=== PATIENT | female | born 1980 | race Caucasian/White ===

== ENCOUNTER 2019-02-08 18:52 | Emergency (ER) | payer OTHER ==
[~2019-02-08] VITALS: Ht 162.6 cm; Wt 77.1 kg
[~2019-02-08 18:52] MED LIST: ALBU90OI6 INH; AMOX500 PO; ANTOXYBENA RIGHTEAR; BENZ100A PO; CEPH500 PO; CODGUAEL PO; Cleocin HCl300 MG PO; Crutch1 EACH MISC; IBUP600 PO; K-Dur10 MEQ PO; LAMO100 PO; Lasix20 MG PO; Naprosyn500 MG PO; Norco 5-325 Ta1 EACH PO; ONDA4 PO; Percocet 5-3251 EACH PO; SILSUL1TC TOP; Ultram50 MG PO
[2019-02-08] MEDS ORDERED: ERYT1OIN RIGHTEYE (19:23)
== END 2019-02-08 19:30 | disposition home or self-care (01) ==
LOC: ER 18:52
DX: H10.9 Unspecified conjunctivitis (principal); F17.210 Nicotine dependence, cigarettes, uncomplicated
CPT/HCPCS: 99283

== ENCOUNTER 2019-02-10 18:30 | Emergency (ER) | payer OTHER ==
[~2019-02-10] VITALS: Ht 162.6 cm; Wt 73.5 kg
[~2019-02-10 18:30] MED LIST changes: +ERYT1OIN RIGHTEYE
[2019-02-10] MEDS ORDERED: Artificial Tear15 M4 RIGHTEYE (21:08)
== END 2019-02-10 21:40 | disposition home or self-care (01) ==
LOC: ER 18:30
DX: B30.9 Viral conjunctivitis, unspecified (principal); M79.89 Other specified soft tissue disorders; F17.210 Nicotine dependence, cigarettes, uncomplicated
CPT/HCPCS: 93971; 99283-25

== ENCOUNTER 2019-03-18 16:04 | Emergency (ER) | payer OTHER ==
[~2019-03-18] VITALS: Ht 175.3 cm; Wt 79.4 kg
[~2019-03-18 16:04] MED LIST changes: +Artificial Tear15 M4 RIGHTEYE
[2019-03-18] MEDS ORDERED: LAMO100 (17:09)
== END 2019-03-18 17:33 | disposition home or self-care (01) ==
LOC: ER 16:04
DX: F31.9 Bipolar disorder, unspecified (principal); R45.1 Restlessness and agitation; Z79.899 Other long term (current) drug therapy; F17.210 Nicotine dependence, cigarettes, uncomplicated
CPT/HCPCS: 99283

== ENCOUNTER 2019-03-24 12:15 | Emergency (ER) | payer OTHER ==
[~2019-03-24] VITALS: Ht 162.6 cm; Wt 82.1 kg
[~2019-03-24 12:15] MED LIST changes: +LAMO100
[2019-03-24] MEDS ORDERED: Bactrim Ds Tab1 EACH PO (12:44)
== END 2019-03-24 12:49 | disposition home or self-care (01) ==
LOC: ER 12:15
DX: L73.1 Pseudofolliculitis barbae (principal); F32.9 Major depressive disorder, single episode, unspecified; F17.210 Nicotine dependence, cigarettes, uncomplicated; Z79.899 Other long term (current) drug therapy; Z86.14 Personal history of Methicillin resistant Staphylococcus aureus infection
CPT/HCPCS: 99282

== ENCOUNTER 2020-07-14 10:31 | Emergency (ER) | payer OTHER ==
[~2020-07-14] VITALS: Ht 162.6 cm; Wt 81.7 kg
[~2020-07-14 10:31] MED LIST changes: +Bactrim Ds Tab1 EACH PO
[2020-07-14] MEDS ORDERED: KEFLEX500 MG PO (11:19)
[2020-07-14] MEDS ORDERED: Bactrim Ds Tab1 EACH PO (11:19)
== END 2020-07-14 11:45 | disposition home or self-care (01) ==
LOC: ER 10:31
DX: L02.412 Cutaneous abscess of left axilla (principal); N76.4 Abscess of vulva
CPT/HCPCS: 10060; 56405; 99283-25; A9270-GY

== ENCOUNTER → 2020-09-25 | Outpatient (CLI) | payer OTHER ==
[~2020-09-25] MED LIST changes: +IBUP800 PO; +KEFLEX500 MG PO; +SULTRIDS PO
[2020-09-26 03:19] LABS: Candida species (DNA Probe) Negative (NEGATIVE); G. vaginalis (DNA Probe) Negative (NEGATIVE); T. vaginalis (DNA Probe) Negative (NEGATIVE)
== END | disposition home or self-care (01) ==
LOC: LAB SHORT 10:25 → LAB 10:25
PROVIDERS: Physician Assistant
DX: N76.0 Acute vaginitis (principal); Z20.9 Contact with and (suspected) exposure to unspecified communicable disease; R82.79 Other abnormal findings on microbiological examination of urine
CPT/HCPCS: 87070; 87077; 87086; 87186; 87205; 87480; 87510; 87660

== ENCOUNTER 2020-10-01 11:29 | Emergency (ER) | payer OTHER ==
[~2020-10-01] VITALS: Ht 162.6 cm; Wt 81.7 kg
[~2020-10-01 11:29] MED LIST changes: -IBUP800 PO; -SULTRIDS PO
[2020-12-13] MEDS ORDERED: IBUP800 PO (12:01)
[2020-12-13] MEDS ORDERED: Cleocin HCl300 MG PO (12:01)
== END 2020-10-01 13:27 | disposition home or self-care (01) ==
LOC: ER 11:29
DX: F41.9 Anxiety disorder, unspecified (principal); F17.200 Nicotine dependence, unspecified, uncomplicated
CPT/HCPCS: 99283

== ENCOUNTER 2021-02-28 19:25 | Emergency (ER) | payer OTHER ==
[~2021-02-28] VITALS: Ht 162.6 cm; Wt 77.1 kg
[~2021-02-28 19:25] MED LIST changes: +IBUP800 PO
[2021-02-28] MEDS ORDERED: CEPH500 PO (20:02)
[2021-02-28] MEDS ORDERED: SULTRIDS PO (20:02)
== END 2021-02-28 20:14 | disposition home or self-care (01) ==
LOC: ER 19:25
DX: L03.114 Cellulitis of left upper limb (principal); Z87.891 Personal history of nicotine dependence
CPT/HCPCS: 99283; A9270

== ENCOUNTER 2021-04-11 23:08 | Emergency (ER) | payer OTHER ==
[~2021-04-11] VITALS: Ht 165.1 cm; Wt 79.4 kg
[~2021-04-11 23:08] MED LIST changes: +SULTRIDS PO
[2021-04-12 01:53] LABS: Alanine Aminotransfer (ALT/SGP 23 U/L (12-78); Albumin, Blood 3.6 g/dL (3.4-5.0); Albumin/Globulin Ratio 1.1 (0.8-1.8); Alk Phos 74 U/L (50-136); Anion Gap 5 mmol/L (6-16); Aspartate Aminotrans (AST/SGOT 13 U/L (12-37); Bilirubin, Total 0.1 mg/dL (0.1-1.0); Blood Urea Nitrogen 14 mg/dL (8-24); Bun/Creatinine Ratio 27.1 (12.0-20.0); CO2, Blood 28 mmol/L (21-32); Calcium, Blood 8.5 mg/dL (8.5-10.1); Chloride, Blood 107 mmol/L (98-108); Creatinine, Blood 0.52 mg/dL (0.40-1.00); Globulin, Blood 3.3 g/dL (2.2-4.0); Glomerular Filtration Rate >60 (60-); Glucose, Blood 118 mg/dL (70-99); Potassium, Blood 4.2 mmol/L (3.5-5.5); Sodium, Blood 140 mmol/L (136-145); Total Protein, Blood 6.9 g/dL (6.4-8.2); Troponin I <0.015 ng/mL (0.000-0.040)
[2021-04-12 02:11] LABS: BASOPHILS ABSOLUTE AUTO 0.01 K/mm3 (0.00-0.23); BASOPHILS PERCENT AUTO 0 % (0-2); EOSINOPHILS ABSOLUTE AUTO 0.06 K/mm3 (0.00-0.68); EOSINOPHILS PERCENT AUTO 1 % (0-6); Hematocrit 41.3 % (33.0-51.0); Hemoglobin 13.6 g/dL (11.5-16.0); Mean Corpuscular HGB 28.2 pg (26.0-34.0); Mean Corpuscular HGB Conc 32.9 g/dL (31.5-36.5); Mean Corpuscular Volume 86 fL (80-100); Mean Platelet Volume 9.6 fL (9.1-12.4); Platelet Count 291 K/mm3 (150-400); RDW Coefficient Variation 12.1 % (11.7-14.2); RDW Standard Deviation 37.6 fL (35.1-46.3); Red Blood Cell Count 4.83 M/mm3 (3.80-5.20); White Blood Cell Count 5.02 K/mm3 (4.00-11.30)
[2021-04-12 02:12] LABS: IMMATURE GRAN ABSOLUTE AUTO 0.01 K/mm3 (0.00-0.10); IMMATURE GRAN PERCENT AUTO 0 % (0-1); LYMPHOCYTES ABSOLUTE AUTO 2.63 K/mm3 (0.84-5.20); LYMPHOCYTES PERCENT AUTO 52 % (21-46); MONOCYTES ABSOLUTE AUTO 0.47 K/mm3 (0.16-1.47); MONOCYTES PERCENT AUTO 9 % (4-13); NEUTROPHILS ABSOLUTE AUTO 1.84 K/mm3 (1.96-9.15); NEUTROPHILS PERCENT AUTO 37 % (41-73)
== END 2021-04-12 02:55 | disposition home or self-care (01) ==
LOC: ER 23:08
PROVIDERS: Emergency Medicine
DX: R07.9 Chest pain, unspecified (principal); F15.10 Other stimulant abuse, uncomplicated
CPT/HCPCS: 36415; 71045; 80053; 84484; 85025; 93005; 93010; 99284-25; A9270

== ENCOUNTER 2021-07-10 12:30 | Emergency (ER) | payer OTHER ==
[~2021-07-10] VITALS: Ht 162.6 cm; Wt 77.1 kg
== END 2021-07-10 13:35 | disposition home or self-care (01) ==
LOC: ER 12:30
DX: J06.9 Acute upper respiratory infection, unspecified (principal); Z20.822 Contact with and (suspected) exposure to COVID-19; F17.210 Nicotine dependence, cigarettes, uncomplicated
CPT/HCPCS: 99284

== ENCOUNTER 2022-10-28 12:22 | Emergency (ER) | payer OTHER ==
[~2022-10-28] VITALS: Ht 165.1 cm; Wt 94.8 kg
[2022-10-28] MEDS ORDERED: Amoxicillin500 MG PO (12:33)
[2022-10-28] MEDS ORDERED: IBUP800 PO (12:33)
== END 2022-10-28 12:34 | disposition home or self-care (01) ==
LOC: ER 12:22
DX: K04.7 Periapical abscess without sinus (principal); F17.210 Nicotine dependence, cigarettes, uncomplicated
CPT/HCPCS: 99282

== ENCOUNTER 2022-10-31 16:04 | Emergency (ER) | payer OTHER ==
[~2022-10-31] VITALS: Ht 162.6 cm; Wt 97.1 kg
[~2022-10-31 16:04] MED LIST changes: +Amoxicillin500 MG PO
[2022-10-31] MEDS ORDERED: Clindamycin HC150 MG PO (16:39)
[2022-10-31 17:08] LABS: Influenza A, PCR NEGATIVE (NEGATIVE); Influenza B, PCR NEGATIVE (NEGATIVE); Resp Syncytial Virus, PCR NEGATIVE (NEGATIVE); SARS-Cov-2 (COVID-19) PCR, MMC NEGATIVE (NEGATIVE)
== END 2022-10-31 16:39 | disposition home or self-care (01) ==
LOC: ER 16:04
PROVIDERS: Student in an Organized Health Care Education/Training Program
DX: K08.89 Other specified disorders of teeth and supporting structures (principal); I10 Essential (primary) hypertension; R09.81 Nasal congestion; F17.210 Nicotine dependence, cigarettes, uncomplicated; Z20.822 Contact with and (suspected) exposure to COVID-19
CPT/HCPCS: 0241U

== ENCOUNTER → 2023-08-11 | Outpatient (CLI) | payer OTHER ==
[~2023-08-11] MED LIST changes: +Clindamycin HC150 MG PO
[2023-08-12 11:09] LABS: Candida species (DNA Probe) Negative (NEGATIVE); G. vaginalis (DNA Probe) Positive (NEGATIVE); T. vaginalis (DNA Probe) Negative (NEGATIVE)
[2023-08-14 18:18] LABS: APTIMA MEDIA TYPE Urine; C. TRACHOMATIS BY TMA Negative (Negative); N. GONORRHOEAE BY TMA Negative (Negative); SPECIMEN SOURCE Urine
== END | disposition home or self-care (01) ==
LOC: LAB 18:34 → LAB SHORT 18:34
PROVIDERS: Registered Nurse Community Health
DX: N89.8 Other specified noninflammatory disorders of vagina (principal)
CPT/HCPCS: 87480; 87491; 87510; 87591; 87660

== ENCOUNTER → 2024-08-02 | Outpatient (CLI) | payer OTHER | LOC: LAB 09:10 → LAB SHORT 09:10 | DX: L03.116 Cellulitis of left lower limb (principal) | CPT/HCPCS: 87070; 87075; 87076; 87077; 87147; 87185; 87186; 87205 ==